=== PATIENT | male | born 1995 | race Caucasian/White ===

== ENCOUNTER 2021-10-21 11:36 | Outpatient (REF) | payer OTHER, SELFPAY | END 2021-10-21 11:37 | disposition home or self-care (01) | LOC: HO.LAB 11:36 | PROVIDERS: Visit Provider Internal Medicine | DX: Z20.822 Contact with and (suspected) exposure to COVID-19 (principal) | CPT/HCPCS: C9803; U0003; U0005 ==

== ENCOUNTER 2021-11-07 10:04 | Outpatient (REF) | payer OTHER, SELFPAY ==
--- NOTE | ~2021-11-07 | XR_ITS ---
EXAMINATION: XR CHEST CLINICAL INFORMATION: Cough COMPARISON: None TECHNIQUE: 2 views of the chest were obtained. FINDINGS: No significant abnormality is noted involving the heart, lungs, mediastinum, bony thorax or soft tissues. XR/XR chest 2V IMPRESSION: Unremarkable examination.
== END 2021-11-07 10:05 | disposition home or self-care (01) ==
LOC: HO.XRAY 10:04
PROVIDERS: PCP Internal Medicine; Visit Provider Nurse Practitioner Family
DX: R05.8 Other specified cough (principal); U07.1 COVID-19
CPT/HCPCS: 71046

== ENCOUNTER 2022-04-14 12:14 | Emergency (ER) | payer OTHER, SELFPAY ==
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
[2022-04-14 12:29] VITALS: BP 132/60; PULSE 66; RESP 16; TEMP 36.6; O2SAT 99; BMI 25.9
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
== END 2022-04-14 15:23 | disposition home or self-care (01) ==
PROVIDERS: Emergency Provider Emergency Medicine; PCP Internal Medicine
DX: M54.50 Low back pain, unspecified (principal); R06.02 Shortness of breath; R05.9 Cough, unspecified; F17.200 Nicotine dependence, unspecified, uncomplicated; Z71.6 Tobacco abuse counseling; Z79.899 Other long term (current) drug therapy
CPT/HCPCS: 72100; 99283

== ENCOUNTER 2023-04-15 10:36 | Emergency (ER) | payer OTHER, SELFPAY ==
--- NOTE | ~2023-04-15 | XR_ITS ---
EXAMINATION: LEFT ANKLE LEFT FOOT CLINICAL INFORMATION: Pain COMPARISON: None available. TECHNIQUE: 2 views left ankle, 3 views left foot FINDINGS: No significant bone, joint or soft tissue abnormality is seen. XR/XR foot LT 2V IMPRESSION: Unremarkable examination.
--- NOTE | ~2023-04-15 | XR_ITS ---
EXAMINATION: LEFT ANKLE LEFT FOOT CLINICAL INFORMATION: Pain COMPARISON: None available. TECHNIQUE: 2 views left ankle, 3 views left foot FINDINGS: No significant bone, joint or soft tissue abnormality is seen. XR/XR ankle LT 2V IMPRESSION: Unremarkable examination.
[2023-04-15 10:39] VITALS: BP 126/83; PULSE 64; RESP 18; TEMP 36.7; O2SAT 99; BMI 28.4
--- NOTE | 2023-04-15 12:12 | ED.LOWEXIN ---
HPI - Extremity Injury (Lower) General Chief Complaint: Extremity Injury, Lower Stated Complaint: left sprain ankle Time Seen by Provider: 04/15/23 11:59 Source: patient, RN notes reviewed and old records reviewed Mode of arrival: ambulatory History of Present Illness HPI Narrative: 28-year-old male with no significant past medical history presenting to the ED complaining of left ankle pain and swelling s/p twisting while playing basketball 5 days ago. Reports ambulating with discomfort. Denies head trauma or LOC, numbness, tingling, weakness, injury to the area Related Data Previous Rx's Medication Instructions Recorded albuterol sulfate 90 mcg/actuation 2 inh inhalation Q4-6H PRN 11/06/21 aerosol inhaler shortness of breath or wheezing #8.5 grams benzonatate 100 mg capsule 100 mg PO Q6H PRN cough #30 caps 11/06/21 guaifenesin 200 mg tablet 200 - 400 mg PO Q4H PRN cough #30 11/06/21 tabs cyclobenzaprine 10 mg tablet 10 mg PO TID PRN muscle spasm #14 04/14/22 tabs naproxen 500 mg tablet 500 mg PO BID PRN pain #20 tabs 04/14/22 Allergies Allergy/AdvReac Type Severity Reaction Status Date / Time No Known Allergies Allergy Verified 11/06/21 09:57 Review of Systems Review of Systems: Constitutional: No Fever, No Chills ENT/Mouth: No Ear Pain, No Nasal Congestion, No sore throat, No Rhinorrhea, No Swallowing Difficulty Cardiovascular: No Chest Pain, No SOB Respiratory: No Cough, No Sputum Gastrointestinal: No Nausea, No Vomiting, No Abdominal pain Musculoskeletal: + joint pain, No Myalgias, + Joint Swelling Skin: No Skin Lesions, No rash Neuro: No Weakness, No Numbness, No Paresthesias Yes all other systems are reviewed and are negative Constitutional: Constitutional: Reports as per [facility] Past Medical History Attestation statement: The following information was validated with the patient. Source: old records reviewed Surgical History No pertinent past surgical history Family History Family History Father No problems noted. Mother No problems noted. Social History Social History Housing: Apartment Alcohol intake: never Patient Tobacco Use Status: Current someday Tobacco user Smoked in Last 30 Days: No e-Cigarette/Vaping Use: Never Used Second Hand Smoke Exposure: No Use of substances other than those prescribed or required for medical reasons: No Advance Directives: No Advance Directives Information Provided: Yes service: No Current occupational status: employed Current occupational exposures/hazards: No Physical Exam Vital Signs: Vital Signs: Last Vital Signs Temp 98.2 F 04/15/23 12:13 Pulse 57 04/15/23 12:13 Resp 14 04/15/23 12:13 BP 133/79 04/15/23 12:13 Pulse Ox 97 04/15/23 12:13 O2 Del Method Room Air 04/15/23 12:13 BMI result Body Mass Index 28.4 Const: General: cooperative, healthy appearing and no acute distress Orientation/consciousness: patient oriented x3 Limitations: no limitations HEENT: Head: Yes normal to inspection and Yes atraumatic Ears: hearing grossly normal bilaterally General nose exam: Normal external nose present Face and sinus: Yes normal facial exam Eyes: General: appearance normal, both eyes and all related structures EOM: EOMs intact bilaterally Neck: Neck: Yes normal visual inspection and Yes no meningeal signs Resp: Effort & Inspection: normal respiratory effort and no respiratory distress Cardio: Rate: regular rate Peripheral pulses: dorsalis pedis present Skin: Rashes: no rashes Wounds: no wounds Neuro: General: patient oriented x3, tone normal and no meningeal signs Gait exam (Neuro): Antalgic gait present Extrem: Other: + left ankle with noted swelling and ecchymosis. Diffusely tender to palpation. Foot nontender. Limited ROM secondary to pain. Neurovascular intact Course Course Course Narrative: XR ankle LT 2V/XR foot LT 2V IMPRESSION: Unremarkable examination. >> air cast applied and patient is supplied with crutches Results discussed with patient including worrisome signs and symptoms and strict return precautions, and when to return to the emergency department. They verbalized understanding and feel safe for discharge at this time. Medical Decision Making Medical Decision Making MDM Narrative: 28-year-old male with no significant past medical history presenting to the ED complaining of left ankle pain and swelling s/p twisting while playing basketball 5 days ago. On exam vital signs stable, NAD, nontoxic appearing, physical exam as noted above. Concern for fracture versus sprain. Low suspicion for septic joint osteoarthritis Plan: X-ray Please refer to course for remaining clinical decision making, interpretation of labs/imaging results, and discussions with consultants and/or family members. Differential Diagnosis Differential Diagnoses: The differential diagnosis associated with the presentation includes As above Admission/Observation Consideration of admission/observation: Escalation of care including admission/observation considered Radiology Impression Discussion of test interpretation with radiology: I have reviewed the radiologist's reading. External Record Review External record reviewed: Inpatient record, Office record, Outpatient record, Prior outpatient labs, Prior outpatient radiology, Primary care record and Outside ED record Tests considered The following testing was considered but not selected: As above Discharge Plan Discharge Clinical Impression: Ankle sprain Patient Disposition: Home, Self-Care Instructions: Ankle Sprain (DC) Additional Instructions: Your x-rays do not show a fracture, you sprained her ankle Wear Aircast as needed for comfort and stability. Use crutches as needed, bear weight as tolerated Ice and elevate Take Tylenol Motrin If symptoms persist or worsen or area begins to look infected return to the ED Prescriptions: No Action naproxen 500 mg tablet 500 mg PO BID PRN (Reason: pain) Qty: 20 0RF cyclobenzaprine 10 mg tablet 10 mg PO TID PRN (Reason: muscle spasm) Qty: 14 0RF albuterol sulfate 90 mcg/actuation HFA aerosol inhaler 2 inh inhalation Q4-6H PRN (Reason: shortness of breath or wheezing) Qty: 8.5 0RF guaifenesin 200 mg tablet 200 - 400 mg PO Q4H PRN (Reason: cough) Qty: 30 0RF benzonatate 100 mg capsule 100 mg PO Q6H PRN (Reason: cough) Qty: 30 0RF Referrals: [facility] [place] [facility] [Provider Group] - 1 week (as needed) Usama Low MD [Primary Care Provider] - Stand Alone Forms: Work/School Release Interventions: ED Discharge Assessment Last Done: 04/15/23 12:35 Discharge Date/Time: 04/15/23 12:39
[2023-04-15 12:13] VITALS: BP 133/79; PULSE 57; RESP 14; TEMP 36.8; O2SAT 97
--- NOTE | 2023-04-15 12:13 | PC.NURSE ---
Presents after injury to left ankle playing basketball. Ankle noted to be swollen, patient able to bear weight to the ankle but favors the affected side.
== END 2023-04-15 12:39 | disposition home or self-care (01) ==
PROVIDERS: Emergency Provider Student in an Organized Health Care Education/Training Program; PCP Internal Medicine
DX: S93.402A Sprain of unspecified ligament of left ankle, initial encounter (principal); X50.1XXA Overexertion from prolonged static or awkward postures, initial encounter; F17.200 Nicotine dependence, unspecified, uncomplicated; Y93.67 Activity, basketball; Y92.310 Basketball court as the place of occurrence of the external cause; Y99.9 Unspecified external cause status
CPT/HCPCS: 73600; 73620; 99283; 99284

== ENCOUNTER 2023-11-17 16:49 | Outpatient (AMB) | payer OTHER, SELFPAY ==
[2023-11-17 16:50] VITALS: BP 108/80; PULSE 79; O2SAT 99; BMI 29.5
--- NOTE | 2023-11-17 16:50 | A.OFFPC_ITS ---
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 Accompanied by: Self / Same As Patient Allergies No Known Allergies Allergy (Verified 11/17/23 17:14) Medication List - Last Reconciled 11/17/23 by Connor Solis MD cyclobenzaprine 10 mg PO TID PRN naproxen 500 mg PO BID PRN Tobacco use date assessed: 11/17/23 Dental Screening Dental Screen Date: 11/17/23 Did you have a dental visit in the last 12 months?: No Did you have a dental problem in the last 6 months where you did not have access to dental care?: No Was dental information given to patient?: No HPI JANNIE Kim PE HPI Details Patient comes in today for his annual physical examination Is transferring over to [facility] - was last seen by CHANTAL Travis back in Patient states that he sprained his left ankle a few months ago in 03/2023 - twisted his ankle while playing basketball States that he went to the ER to get his ankle checked out then Was advised that his x-rays done at the time came out negative with no acute findings/fracture He was referred back then to orthopedics for further management but states that he was never seen by orthopedics for his ankle since States that it has been over 6 months now and his ankle is still bothering him a lot - has increasing pain especially around the lateral malleolar area that feels worse with weight-bearing Adds that he has been experiencing recurrent left-sided neck pain for a while now Does not recall any recent injury or trauma to his neck States that he contracted gonorrhea from his ex-girlfriend a couple of months ago and he got treated with some Abx Currently has no acute symptoms but would like to get tested again to be sure that his infection is cleared up completely He denies any headaches or dizziness Denies any chest pains, no SOB No nausea/vomiting, no abdominal pain No change in bowel habits noted He denies any acute urinary symptoms PFSH Medical History Anxiety PTSD (post-traumatic stress disorder) Depression Hx of dislocation of knee (~01/2019) Overweight (BMI 25.0-29.9) Smoker Surgical History (Updated 11/17/23 @ 18:15 by Connor Solis MD) Hx of appendectomy (~05/05/12) Family History Father No problems noted. Mother No problems noted. Social History Housing: Apartment Alcohol intake: never Patient Tobacco Use Status: Current someday Tobacco user e-Cigarette/Vaping Use: Never Used Second Hand Smoke Exposure: No service: No Current occupational status: employed Current occupational exposures/hazards: No Cognitive needs: No Hearing needs: No Vision needs: No Questionnaire PHQ-9 Over the last 2 weeks, how often have you been bothered by any of the following problems? 1. Little interest or pleasure in doing things: more than half the days 2. Feeling down, depressed, or hopeless: several days 3. Trouble falling or staying asleep, or sleeping too much: not at all 4. Feeling tired or having little energy: not at all 5. Poor appetite or overeating: not at all 6. Feeling bad about yourself - or that you are a failure or have let yourself or your family down: not at all 7. Trouble concentrating on things, such as reading the newspaper or watching television: not at all 8. Moving or speaking so slowly that other people could have noticed. Or the opposite - being so fidgety or restless that you have been moving around a lot more than usual: not at all 9. Thoughts that you would be better off or of hurting yourself in some way: not at all Total score: 3 Depression Screening Interpretation: Positive Depression Screening Follow-up: Existing condition and Declines treatment Depression Screening Done: Yes 46924 - PHQ-9 Billing: Yes Source: Developed by Drs. Daniel De Anda, Faustina Morgan, Mario Alberto Vasquez and colleagues, with an educational sue from [employer]. Thrive Questionnaire Date Thrive assessed: 11/17/23 I am a: Patient What is your living situation today?: I have a steady place to live Within the past 12 months, did the food you bought not last and you didn't have the money to get more?: Never true Within the past 12 months, did you worry whether your food would run out before you got money to buy more?: Never true Do you have trouble paying for medicines?: No Do you have trouble getting transportation to medical appointments?: No Do you have trouble paying your heating and electricity bill?: No Do you have trouble taking care of your child, family member or friend?: No Do you have trouble with day-to-day activities such as bathing, preparing meals, shopping, managing finances, etc.?: No Are you currently unemployed and looking for a job?: No Are you interested in more education?: No Please select the resources that you would like help with: None Currently or been in a relationship where the following occur: no concerns reported THRIVE Score: 0 AUDIT C Alcohol Use Questionnaire (AUDIT-C) 1. How often do you have a drink containing alcohol?: Never 3. How often do you have six or more drinks on one occasion?: Never Total Score: 0 AMY-7 AMB Questionnaire AMY-7 Date AMY - 7 assessed: 11/17/23 Feeling nervous, anxious, or on edge: 1 = Several days Not being able to stop or control worryin = Several days Worrying too much about different things: 1 = Several days Trouble relaxin = Not at all Being so restless that it is hard to sit still: 0 = Not at all Becoming easily annoyed or irritable: 0 = Not at all Feeling afraid as if something awful might happen: 0 = Not at all Total AMY-7 score (0-4 normal; 5-9 mild; 10-14 moderate; 15-21 severe): 3 Source: Developed by Drs. Daniel De Anda, Faustina Morgan, Mario Alberto Vasquez and colleagues, with an educational sue from [employer]. Review of Systems Const Denies chills, Denies fatigue, Denies fever(s), Denies headache(s), Denies malaise and Denies weakness Eyes Denies blurry vision, Denies change in vision, Denies irritation and Denies itchy eyes ENT Denies dysphagia, Denies dizziness, Denies otalgia, Denies headache(s), Denies nasal congestion, Reports neck pain (recurrent, over the left side of the neck), Denies odynophagia and Denies sore throat Card Denies chest pain, Denies rapid heart rate, Denies irregular heart rhythm, Denies palpitations and Denies dyspnea Resp Denies chest congestion, Denies cough, Denies dyspnea and Denies wheezing GI Denies abdominal pain, Denies bloating, Denies constipation, Denies dysphagia, Denies heartburn, Denies diarrhea, Denies nausea, Denies odynophagia and Denies vomiting Denies hematuria, Denies difficulty urinating, Denies dysuria, Denies nocturia, Denies penile discharge, Denies urinary frequency and Denies urinary urgency Musc Denies back pain, Reports arthralgias (over the left ankle (lateral aspect) - see HPI), Denies joint swelling, Denies muscle weakness and Reports neck pain (recurrent, over the left side of the neck) Skin/Breast Denies change in pigmentation, Denies lesions, Denies rash and Denies unusual bruising Neuro Denies dizziness, Denies headache(s), Denies paresthesias and Denies weakness Endo Denies fatigue and Denies palpitations Aller/Immun Denies itchy eyes and Denies wheezing Physical exam (Primary Care) Vital Signs: Last Vital Signs Pulse 79 11/17/23 16:50 BP 108/80 11/17/23 16:50 Pulse Ox 99 11/17/23 16:50 Oxygen Delivery Method Room Air 11/17/23 16:50 BMI result Body Mass Index 29.5 Tobacco/Smoking Status: Tobacco use Status Tobacco use date assessed 11/17/23 11/17/23 16:55 Patient Tobacco Use Status Current someday Tobacco 11/17/23 16:55 e-Cigarette/Vaping Use Never Used 11/17/23 16:55 PHQ-9: PHQ-9 Score PHQ-9: Total score 3 11/17/23 17:16 Depression Screening Interpretation: Positive Depression Screening Follow-up: Existing condition and Declines treatment Thrive Assessment: Date of Thrive Assessment Date Thrive assessed 11/17/23 11/17/23 16:55 Currently or been in a relationship where the following occur: no concerns reported Const General: no acute distress, alert and awake Orientation/consciousness: patient oriented x3 HENMT Head: Yes normocephalic and Yes atraumatic Ears: external ears normal, TM's normal bilaterally and EAC's normal General nose exam: No nasal discharge present Face and sinus: Yes normal facial exam and Yes sinuses nontender Teeth and gingiva: dentition normal Throat: Yes posterior oropharynx normal and Yes tonsils normal (no TP congestion) Eyes Eyelids: Yes eyelids normal Conjunctivae: conjunctivae normal Pupils: Equal, round and reactive pupils present EOM: EOMs intact bilaterally Neck Other: (+) mild tenderness over the trapezius muscle on the left side of the neck near the base Neck: Yes no lymphadenopathy Thyroid: Thyroid normal Resp Auscultation: clear to auscultation bilaterally, no rales and no wheezes Cardio Rate: regular rate Rhythm: regular rhythm Heart sounds: no murmurs GI Palpation (GI): Soft to palpation, nontender and No hepatosplenomegaly present Auscultation: normal bowel sounds General: Yes no CVA tenderness Male General Exam: Yes normal external exam and No hernia Back/Spine/Pelvis Back: no CVA tenderness Cervical Spine: No Cervical spine tenderness Thoracic/Lumbar Spine: No lumbar spinal tenderness Skin Lesions: no lesions Rashes: no rashes Neuro General: patient oriented x3, moves all extremities, no focal motor deficits and CN's II-XI intact bilaterally Cranial nerves: Yes Equal, round and reactive pupils present Cognition (Neuro): normal cognition Gait exam (Neuro): Normal gait present Extrem General: Yes no clubbing, cyanosis or edema Left lower extremity: ankle Details: tenderness (around the lateral malleolar area of the knee ); no swelling Assessment and Plan Assessment & Plan (1) Annual physical exam: Code(s): Z00.00 - Encounter for general adult medical examination without abnormal findings Plan: Check labs (2) Left lateral ankle pain: Code(s): M25.572 - Pain in left ankle and joints of left foot Plan: Will send patient for x-rays of the left ankle MURALI for further evaluation Advised patient that we will likely need to refer him to either orthopedics or podiatry for further evaluation and management but will wait and see how his x- rays come out first (3) Neck pain on left side: Code(s): M54.2 - Cervicalgia Plan: Advised that this is most likely musculoskeletal pain / strain and will likely need referral to physical therapy Will send him for cervical spine x-rays for now for further evaluation (4) STD (sexually transmitted disease): Code(s): A64 - Unspecified sexually transmitted disease Plan: Relates that he was treated for this a couple of months ago but would like to get tested again to ensure that this is cleared up Per request, will have him get tested again for GC and Chlamydia together with his routine labs (5) Smoker: Code(s): F17.200 - Nicotine dependence, unspecified, uncomplicated Plan: Counseled on smoking cessation (6) Overweight (BMI 25.0-29.9): Code(s): E66.3 - Overweight Plan: Reinforced diet/exercise as tolerated/lose weight (7) Anxiety: Code(s): F41.9 - Anxiety disorder, unspecified Plan: (+) Hx of anxiety and mood disorder and has been treated with Sertraline in the past States that he has been doing okay lately and does not need anything for his anxiety and depression at this time Plan Follow up in 4 months Orders: Orders CT NG by PCR Today Z20.2 - Contact with and (suspected) exposure to infections with a predominantly sexual mode of transmission Comprehensive [place]. Panel Fast Today E78.00 - Pure hypercholesterolemia, unspecified, Z00.00 - Encounter for general adult medical examination without abnormal findings Lipid Panel Today E78.00 - Pure hypercholesterolemia, unspecified, Z00.00 - Encounter for general adult medical examination without abnormal findings UA CC w/rflx Micro + Cult Today R30.0 - Dysuria, Z00.00 - Encounter for general adult medical examination without abnormal findings TSH reflex Free T4 Today E78.00 - Pure hypercholesterolemia, unspecified, Z00.00 - Encounter for general adult medical examination without abnormal findings Vitamin D 25-OH Total Today E55.9 - Vitamin D deficiency, unspecified, Z00.00 - Encounter for general adult medical examination without abnormal findings XR ankle LT min 3V Today M25.572 - Pain in left ankle and joints of left foot XR cervical spine 3V Today M54.2 - Cervicalgia Complete Blood Count Auto Diff Today D64.9 - Anemia, unspecified, Z00.00 - Encounter for general adult medical examination without abnormal findings Coding Level of Care Code Est Pt Prev Care 18-39y(88084) Diagnoses Annual physical exam Z00.00 Left lateral ankle pain M25.572 Neck pain on left side M54.2 STD (sexually transmitted disease) A64 Smoker F17.200 Overweight (BMI 25.0-29.9) E66.3 Anxiety F41.9
== END 2023-11-17 17:25 | disposition home or self-care (01) ==
PROVIDERS: PCP Internal Medicine; Visit Provider Internal Medicine
DX: Z00.00 Encounter for general adult medical examination without abnormal findings (principal); M25.572 Pain in left ankle and joints of left foot; M54.2 Cervicalgia; A64 Unspecified sexually transmitted disease; F17.200 Nicotine dependence, unspecified, uncomplicated; E66.3 Overweight; F41.9 Anxiety disorder, unspecified
CPT/HCPCS: 99395

== ENCOUNTER 2023-12-17 14:46 | Outpatient (REF) | payer OTHER, SELFPAY ==
--- NOTE | ~2023-12-17 | XR_ITS ---
EXAMINATION: XR ANKLE, LEFT CLINICAL INFORMATION: Pain COMPARISON: Radiographs 04/15/2023 TECHNIQUE: 3 views of the ankle FINDINGS: Subtle lucency through the lateral malleolus though does not clearly extend to the cortical surface favored to reflect a nutrient channel though if any history of trauma subtle nondisplaced fracture would be difficult to entirely exclude. Joint spaces are maintained. No joint effusion. Mild bimalleolar soft tissue swelling improved from prior. XR/XR ankle LT min 3V IMPRESSION: 1. Subtle lucency through the lateral malleolus though does not clearly extend to the cortical surface favored to reflect a nutrient channel though if any history of trauma subtle nondisplaced fracture would be difficult to entirely exclude. Recommend correlation with any history of trauma. 2. Mild bimalleolar soft tissue swelling improved from prior.
--- NOTE | ~2023-12-17 | XR_ITS ---
EXAMINATION: XR cervical spine 3V CLINICAL INFORMATION: Pain COMPARISON: None TECHNIQUE: 3 views of the cervical spine were obtained. FINDINGS: The cervical spine is visualized to the level of C7-T1 on the lateral view. Vertebral body alignment is maintained. Vertebral body heights are maintained. Disc space heights are maintained.. Lateral masses of C1 are well aligned on C2. Visualized portion of the dens is intact. No prevertebral soft tissue swelling. XR/XR cervical spine 3V IMPRESSION: * Unremarkable cervical spine radiographs.
[2023-12-17 14:57] LABS: MANUAL DIFF FLAG NO
[2023-12-17 15:24] LABS: Basophils Percent Auto 0.6 % (0-2); Eosinophils Absolute Auto 0.1 X10*3/uL (0.0-0.4); Eosinophils Percent Auto 1.7 % (0-4); Hematocrit 46.4 % (42.0-52.0); Hemoglobin 15.8 g/dl (14.0-18.0); Imm Gran Abs Auto 0.01 X10*3/uL (0.00-0.03); Imm Gran Pct Auto 0.1 % (0.0-0.4); Lymphocytes Absolute Auto 2.7 X10*3/uL (1.2-4.9); Lymphocytes Percent Auto 38.3 % (20-40); Mean Corpuscular HGB Conc 34.1 g/dl (31.0-36.0); Mean Corpuscular Hemoglobin 29.5 pg (27.0-33.0); Mean Corpuscular Volume 86.7 fL (80.0-98.0); Mean Platelet Volume 12.5 fL (9.4-12.4); Monocytes Absolute Auto 0.7 X10*3/uL (0.1-1.2); Monocytes Percent Auto 10.7 % (2-11); Neutrophils Absolute Auto 3.4 x10*3/uL (2.0-8.3); Neutrophils Percent Auto 48.6 % (45-73); Platelet Count 208 X10*3/uL (160-400); Red Blood Count 5.35 X10*6/uL (4.60-5.80); Red Cell Distribution Width 12.8 % (11.0-16.0); White Blood Count 6.9 X10*3/uL (4.8-10.8)
[2023-12-17 15:26] LABS: Appearance Urine Clear; Color Urine Yellow; Glucose Urine UA Negative (Negative); Leukocyte Esterase Urine Negative (Negative); Nitrite Urine Negative (Negative); PH 7.5 (5.0-9.0); Specific Gravity - Urine <= 1.005 (1.005-1.025); Urine Blood Negative (Negative); Urine Ketones Trace mg/dL (Negative); Urine Protein Negative (Neg-Trace)
[2023-12-17 15:55] LABS: Alanine Aminotransferase 49 U/L (0-40); Albumin Level 4.6 g/dL (3.5-5.0); Alkaline Phosphatase 53 U/L (39-117); Anion Gap 13 (12-20); Aspartate Amino Transferase 35 U/L (5-37); Bilirubin Total 0.5 mg/dL (0.0-1.0); Blood Urea Nitrogen 12 mg/dL (9-16); Calcium 9.8 mg/dL (8.4-10.2); Carbon Dioxide 28 mmol/L (22-29); Chloride 100 mmol/L (96-108); Cholesterol 213 mg/dL (<200); Estimated Glomerular Filt Rate > 60; Glucose Fasting 84 mg/dL (60-99); HDL Cholesterol 36 mg/dL (>40); LDL Cholesterol Calculated 160 mg/dL (<100); Potassium 3.9 mmol/L (3.3-5.1); Sodium 137 mmol/L (135-145); Total Protein 8.4 g/dL (6.5-8.0); Triglycerides 85 mg/dL (<150)
[2023-12-17 16:13] LABS: TSH reflex Free T4 1.33 uIU/mL (0.32-4.0); Vitamin D 25-OH Total 21.1 ng/mL (>30)
== END 2023-12-17 14:47 | disposition home or self-care (01) ==
LOC: HO.LAB 14:46
PROVIDERS: PCP Internal Medicine; Visit Provider Internal Medicine
DX: Z00.00 Encounter for general adult medical examination without abnormal findings (principal); R30.0 Dysuria; D64.9 Anemia, unspecified; E78.00 Pure hypercholesterolemia, unspecified; E55.9 Vitamin D deficiency, unspecified; M25.572 Pain in left ankle and joints of left foot; M54.2 Cervicalgia
CPT/HCPCS: 36415; 72040; 73610; 80053; 80061; 81003; 82306; 84443; 85025

== ENCOUNTER 2024-06-23 20:04 | Emergency (ER) | payer BC, SELFPAY ==
--- NOTE | ~2024-06-23 | XR_ITS ---
EXAMINATION: XR CERVICAL SPINE CLINICAL INFORMATION: Pinched nerve. COMPARISON: None available. TECHNIQUE: 3 views of the cervical spine were obtained. FINDINGS: Cervical spinal alignment is anatomic in the sagittal projection. The vertebral bodies demonstrate preserved stature. Intervertebral disc space heights are preserved. The C1-C2 relationship is anatomic. The dens is intact. Prevertebral soft tissue is normal in appearance. The paraspinal soft tissue is normal in appearance. The visualized lung apices are clear. XR/XR cervical spine 3V IMPRESSION: No acute osseous cervical spine abnormality. No significant degenerative disease. Electronically signed by: Kolton Gtz DO 06/23/2024 10:47 PM EDT
--- NOTE | ~2024-06-23 | XR_ITS ---
EXAMINATION: XR THORACIC SPINE CLINICAL INFORMATION: Pinched nerve. COMPARISON: None available. TECHNIQUE: 3 views of the thoracic spine were obtained. FINDINGS: Thoracic spinal alignment is anatomic in the sagittal projection. Vertebral body heights are preserved. Intervertebral disc space heights are preserved. Paraspinal soft tissue is normal in appearance. The visualized lungs are clear. The heart is normal in size. XR/XR thoracic spine 3V IMPRESSION: No acute osseous thoracic spine abnormality. No significant degenerative disease. Electronically signed by: Kolton Gtz DO 06/23/2024 10:49 PM EDT
[2024-06-23 20:19] VITALS: BP 146/90; PULSE 104; RESP 18; TEMP 36.4; O2SAT 97; BMI 29.5
--- NOTE | 2024-06-23 20:19 | ED.GENADULT ---
HPI - General Adult General Chief complaint: Neck Pain/Injury Stated complaint: pinked nerve in leg Time Seen by Provider: 06/23/24 22:06 History of Present Illness ED Provider: Dr. 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 Patient states that he did 2 drills at work. The 1st drill was lifting a ladder to a window. The 2nd drill was prying open a door with an axe like tool. He states that shortly after doing these drills, he did developed pain in the left side of his neck any points to his trapezius muscle when asked to localize the pain. He states the pain does radiate to his left shoulder. Pain is worse ifhe turns his head to the left or if he looks down. He denies any pain radiating down his left arm, numbness or weakness. He states that the pain has gotten progressively worse and is currently 6/10. 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 Related Data Previous Rx's ?Medication ?Instructions ?Recorded cyclobenzaprine 10 mg tablet 10 mg PO TID PRN muscle spasm #14 04/14/22 tabs naproxen 500 mg tablet 500 mg PO BID PRN pain #20 tabs 04/14/22 cyclobenzaprine 10 mg tablet 10 mg PO TID PRN pain, muscle 06/23/24 spasm #15 tabs Allergies Allergy/AdvReac Type Severity Reaction Status Date / Time No Known Allergies Allergy Verified 06/23/24 20:22 Review of Systems Review of Systems: Yes all other systems are reviewed and are negative [facility] Past Medical History [facility] Narrative: social history: He denies tobacco use. He occasionally drinks alcohol. 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 Mother No problems noted. Social History Social History Housing: Apartment Alcohol intake: never Patient Tobacco Use Status: Current someday Tobacco user e-Cigarette/Vaping Use: Never Used Second Hand Smoke Exposure: No Advance Directives: No Advance Directives Information Provided: No service: No Current occupational status: employed Current occupational exposures/hazards: No Cognitive needs: No Hearing needs: No Vision needs: No Physical Exam ED Vital Signs: Vital Signs - 24 hr 06/23/24 20:19 06/23/24 22:38 Temperature 97.6 F 97.6 F Pulse Rate 104 H 104 H Respiratory Rate 18 18 Blood Pressure 146/90 H 146/90 H Pulse Oximetry 97 97 BMI result Body Mass Index 29.5 vital signs did reveal an elevated blood pressure of 146/90-this is most likely caused by pain Exam: General: Awake, alert in no distress Head: Normocephalic, atraumatic EENT: PERRL, Lids normal, sclera normal, conjunctiva normal, nose normal , ears normal, throat without erythema or exudates Neck: patient does have tenderness and spasm of the left trapezius muscle, he has full range of motion of his neck but does have pain with putting chin to his chest and chin to his left shoulder. There is no increased warmth or erythema over the area pain. Back: no vertebral tenderness, No muscle tenderness no CVAT Neuro: Awake, alert, oriented, normal speech, cranial nerves intact, moves all extremities symmetrically with good strength Psych: Pleasant, cooperative Course Course Course Narrative: This is a Rapid Medical Examination (RME) performed by Oliverio Street PA-C in triage. Full HPI, ROS, assessment and treatment plan per primary provider in the Main ED. 29 yo male hx of PTSD and depression here for eval of upper back pain. states he feels like he pinched a nerve in his upper back while doing ladder drills at work earlier today. hx of similar one yr ago, had xrs done. never completed PT. Plan: imaging Medical Decision Making Medical Decision Making MDM Narrative: 29-year-old male precinct police [employer] who presents emergency department for evaluation of left neck pain with pain radiating to his left shoulder which occurred on the day arrival after he did 2 precinct police captain drills at work. vital signs did reveal an elevated blood pressure but I suspect this is secondary to pain -I did discuss this with him in the need to check his blood pressure when he is well and not pain. Patient did have pain in tenderness with palpation over his left trapezius muscle with increased pain with movement of this muscle. Neurologic exam was normal. Differential diagnosis: Includes but is not limited to musculoskeletal injury of the trapezius muscle, disc disease, degenerative joint disease, fracture Following evaluation was ordered: x-rays of the C-spine and thoracic spine Course: The patient's physical examination is consistent with musculoskeletal strain and spasm of the trapezius muscles. Patient's x-rays of the neck and thoracic spine were unremarkable. . I did discuss my findings with the patient. The patient was advised to take ibuprofen and Tylenol for pain was also prescribed cyclobenzaprine 10 mg 3 times a day as needed for spasm. Given the fact that the patient is a precinct police captain, he will not be able to return to full duty until he is re-evaluated by our occupational health clinic, therefore was given a work note and will need to follow-up early next week for re-evaluation. He was given printed and verbal instructions prior to discharge. Admission/Observation Consideration of admission/observation: Escalation of care including admission/observation considered (no) Independent Interpretation I performed an independent interpretation of an: Plain X-Ray Interpretation: my independent interpretation of the patient's x-rays of the cervical spine and thoracic spine are as follows: No acute fracture seen, no significant loss of disc space or arthritic changes. Radiology Impression Discussion of test interpretation with radiology: I have reviewed the radiologist's reading. Radiologist Impression: XR thoracic spine 3V IMPRESSION: No acute osseous thoracic spine abnormality. No significant degenerative disease. Dictated By: Kolton Gtz Jr ,DO XR cervical spine 3V IMPRESSION: No acute osseous cervical spine abnormality. No significant degenerative disease Dictated By: Kolton Gtz Jr DO Prescription Management I considered prescription management with: Other ( Anti muscle spasm medication: Cyclobenzaprine) Discharge Plan Discharge Clinical Impression: Strain of left trapezius muscle, Work related injury Patient Disposition: Home, Self-Care Instructions: Cervical Strain (ED) Additional Instructions: Your presentation physical exam findings are consistent with a sprain of your left trapezius muscle. Apply ice for 15 minutes 4 to 6 times a day to reduce the swelling the inflammation and pain in your trapezius muscle, do this 4 to 6 times a day for the next 2-3 days. Take ibuprofen 200 mg pills, 2 pills every 6 hours as needed for pain or fever. Take Tylenol (acetaminophen) 500 mg pills, 2 pills every 6 hours as needed for pain or fever. Take Flexeril (cyclobenzaprine) 10 mg pills, 1 pill every 6-8 hours as needed for pain or spasm. ?This medication will make you sleepy. ?Do not drive or work while taking this medication. Follow-up with [facility] in 3-4 days in order to be re-evaluated and to determine if you can return to work full-time or with limited duty. Please return to the emergency department if your symptoms get worse or if you develop any symptoms that are concerning to you. 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
[2024-06-23 22:38] VITALS: BP 146/90; PULSE 104; RESP 18; TEMP 36.4; O2SAT 97
== END 2024-06-23 22:39 | disposition home or self-care (01) ==
PROVIDERS: Emergency Provider Emergency Medicine Emergency Medical Services; PCP Internal Medicine
DX: S46.912A Strain of unspecified muscle, fascia and tendon at shoulder and upper arm level, left arm, initial encounter (principal); X50.9XXA Other and unspecified overexertion or strenuous movements or postures, initial encounter; Y93.A9 Activity, other involving cardiorespiratory exercise; Y92.89 Other specified places as the place of occurrence of the external cause; Y99.0 Civilian activity done for income or pay
CPT/HCPCS: 72040; 72072; 99282; 99283; 99284

== ENCOUNTER → 2024-06-27 10:44 | Outpatient (BNVA) | payer OTHER, SELFPAY | PROVIDERS: PCP Internal Medicine; Visit Provider Physician Assistant Medical | DX: S46.812A Strain of other muscles, fascia and tendons at shoulder and upper arm level, left arm, initial encounter (principal); X50.1XXA Overexertion from prolonged static or awkward postures, initial encounter | CPT/HCPCS: 99203 ==

== ENCOUNTER → 2024-07-11 09:34 | Outpatient (BNVA) | payer OTHER, SELFPAY | PROVIDERS: PCP Internal Medicine; Visit Provider Physician Assistant Medical | DX: S46.812D Strain of other muscles, fascia and tendons at shoulder and upper arm level, left arm, subsequent encounter (principal); X50.1XXD Overexertion from prolonged static or awkward postures, subsequent encounter | CPT/HCPCS: 99213 ==

== ENCOUNTER → 2024-07-25 09:26 | Outpatient (BNVA) | payer OTHER, SELFPAY | PROVIDERS: PCP Internal Medicine; Visit Provider Physician Assistant Medical | DX: S46.812D Strain of other muscles, fascia and tendons at shoulder and upper arm level, left arm, subsequent encounter (principal); X50.1XXD Overexertion from prolonged static or awkward postures, subsequent encounter | CPT/HCPCS: 99213 ==

== ENCOUNTER 2024-07-25 14:00 | Outpatient (RCR) | payer OTHER, BC, SELFPAY ==
[2024-07-04 14:02] VITALS: BP 131/72; PULSE 61
--- NOTE | 2024-07-04 14:55 | MHC.PT.EP ---
[facility] [place] [facility] [place] [facility] [place] Office [address] Gracie Banuelos [address] [phone] F: [phone] F: [phone] F: [phone] F: [phone] Physical Therapy Plan of Care Date of Evaluation: 07/04/24 Date of Surgery: NA Diagnosis: L trapezius strain Assessment: Eliud is a 29 year old male who is referred to PT for L trapezius strain . He sustained the injury at work about 2 weeks while practicing ladder drills. On PT examination he present with 5/10 pain over L side of neck, TTP over L UT, L levator scap and medial border of L scapula, decreased cervical ROM, pain with shoulder ROM, decreased shoulder and scap strength, increased tissue tension noted over L UT, and altered posture. 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 He is independent with all ADLs but has pain with activities involving use of L UE. He would benefit from skilled PT to address the aforementioned impairments and improve tolerance to fuctional activities. Frequency and Duration: The patient will be seen 2/week for 4 weeks Short Term Goals: 1. Pt will have 50% decrease in pain which will enable him to tolerate sleeping SL in 2 weeks. 2. Pt will be able to move L shoulder through all planes of motion without pain which will enable him to dress his upper body without difficulty in 3 weeks. 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 Pt will demonstrate an increase in muscle strength by 1 grade which will enable him to perform all ADLS without pain and difficulty in 4 weeks 2. Pt will be independent with all HEP and return to PLOF in 4 weeks Treatment Plan: Modalities to reduce pain, spasms and effusion. Manual therapy to restore motion and function. Therapeutic exercise to improve strength and flexibility. Neuromuscular re-education for posture and balance. Therapeutic activities to return to functional activities of daily living. Electronically signed by: Lida Barkley PT DPT Please sign and return to therapist. Thank you for your referral.
--- NOTE | 2024-08-09 11:36 | MHC.PT.DC ---
[facility] [place] Office [place] Office [place] Office [address] Gracie Banuelos [address] [phone] F: [phone] F: [phone] F: [phone] F: [phone] Physical Therapy Discharge Report Diagnosis: L trapezius strain Date of Surgery: NA Date of Evaluation: 07/04/24 Date of Discharge: 08/09/24 Treatments to Date: 5 Cancellations to Date: 2 No Shows to Date: 1 Discharge Status: Patient Elected to Stop Discharge Summary: Eliud attended only 5 PT visits. He no showed for his last appointment and did not call to make any more appointments. He is therefore being d/c from PT. Electronically signed by: Lida Barkley PT DPT Please sign and return to therapist. Thank you for your referral.
== END 2024-08-09 11:36 | disposition home or self-care (01) ==
LOC: HO.PT 14:00
PROVIDERS: PCP Internal Medicine; Visit Provider Physician Assistant Medical
DX: S46.812D Strain of other muscles, fascia and tendons at shoulder and upper arm level, left arm, subsequent encounter (principal)
CPT/HCPCS: 97012; 97110; 97140; 97161; 97530

== ENCOUNTER → 2024-08-01 09:31 | Outpatient (BNVA) | payer OTHER, SELFPAY | PROVIDERS: PCP Internal Medicine; Visit Provider Registered Nurse | DX: S46.812D Strain of other muscles, fascia and tendons at shoulder and upper arm level, left arm, subsequent encounter (principal); X50.1XXD Overexertion from prolonged static or awkward postures, subsequent encounter | CPT/HCPCS: 99213 ==

== ENCOUNTER → 2024-08-15 09:59 | Outpatient (BNVA) | payer OTHER, SELFPAY | PROVIDERS: PCP Internal Medicine; Visit Provider Physician Assistant Medical | DX: M54.2 Cervicalgia (principal); M54.12 Radiculopathy, cervical region; M54.16 Radiculopathy, lumbar region | CPT/HCPCS: 99213 ==

== ENCOUNTER → 2024-09-05 09:35 | Outpatient (BNVA) | payer OTHER, SELFPAY | PROVIDERS: PCP Internal Medicine; Visit Provider Physician Assistant Medical | DX: M54.12 Radiculopathy, cervical region (principal) | CPT/HCPCS: 99213 ==

== ENCOUNTER 2024-09-12 07:18 | Outpatient (REF) | payer OTHER, SELFPAY ==
--- NOTE | ~2024-09-12 | MR_ITS ---
EXAMINATION: MR CERVICAL SPINE WITHOUT CONTRAST CLINICAL INFORMATION: Persistent intermittent cervicalgia to the left side. COMPARISON: None available. TECHNIQUE: MRI of the cervical spine was obtained using routine sequences without contrast. FINDINGS: Submitted for interpretation on October 05, 2024. Craniocervical junction is intact. No bone marrow STIR signal abnormality. Multilevel disc desiccation. Reverse curvature apex at C3-4. Normal alignment. Cervical spinal cord signal is normal. C2-3: No disc herniation. No neuroforamina stenosis. C3-4: Broad-based disc osteophyte complex formation resulting in ventral indentation to the thecal sac. No cord compression. No neuroforamina stenosis. C4-5: Broad-based disc osteophyte complex formation. No cord compression. No neuroforamina stenosis. C5-6: Broad-based disc osteophyte complex formation. No cord compression. No neuroforamina stenosis. C6-7: Left subarticular disc osteophyte complex formation resulting in ventral deformity of the thecal sac. No cord compression. No neuroforamina stenosis. C7-T1: No disc herniation. No neuroforamina stenosis. No prevertebral compartment hematoma, mass or fluid collection. Flow-void signal within the main vessels is normal. Left vertebral artery is dominant. Nonspecific prominent cervical lymph nodes. MR/MR cervical spine wo con IMPRESSION: Multilevel spondylosis, C3-4 to C6-7 without cord compression, edema and or myelopathy. Electronically signed by: Tom Thornton MD 10/05/2024 12:17 PM [facility] [place]
== END 2024-09-12 07:19 | disposition home or self-care (01) ==
LOC: HO.MRI 07:18
PROVIDERS: PCP Internal Medicine; Visit Provider Physician Assistant Medical
DX: M54.2 Cervicalgia (principal)
CPT/HCPCS: 72141

== ENCOUNTER → 2024-09-12 07:30 | Outpatient (BNV) | payer OTHER, SELFPAY | PROVIDERS: PCP Internal Medicine; Visit Provider Radiology Diagnostic Radiology | DX: M47.812 Spondylosis without myelopathy or radiculopathy, cervical region (principal) | CPT/HCPCS: 72141 ==

== ENCOUNTER → 2024-09-26 14:50 | Outpatient (BNVA) | payer OTHER, SELFPAY | PROVIDERS: PCP Internal Medicine; Visit Provider Physician Assistant Medical | DX: M54.2 Cervicalgia (principal) | CPT/HCPCS: 99213 ==

== ENCOUNTER → 2024-10-09 09:14 | Outpatient (BNVA) | payer OTHER, SELFPAY | PROVIDERS: PCP Internal Medicine; Visit Provider Physician Assistant Medical | DX: M54.2 Cervicalgia (principal); M47.812 Spondylosis without myelopathy or radiculopathy, cervical region | CPT/HCPCS: 99213 ==